=== PATIENT | female | born 1990 | race Asian ===

== ENCOUNTER 2021-05-02 21:02 | Outpatient (CLI) | payer OTHER ==
[~2021-05-02] VITALS: Ht 170.2 cm; Wt 87.1 kg
[2021-05-02 21:25] VITALS: BP 143/88
[2021-05-02] MEDS ORDERED: PRENCHW PO (21:49)
[2021-05-02] MEDS ORDERED: HOME MED LIST COMPLETE! XX SCH (21:50)
[2021-05-02 22:16] VITALS: BP 139/83
== END 2021-05-02 22:30 | disposition home or self-care (01) ==
LOC: M LDO 21:02
PROVIDERS: ATTEND Obstetrics & Gynecology
DX: O47.1 False labor at or after 37 completed weeks of gestation (principal); Z3A.39 39 weeks gestation of pregnancy
CPT/HCPCS: 59025; G0378; G0463

== ENCOUNTER 2021-05-06 16:57 | Inpatient (IN) | payer OTHER ==
[~2021-05-06] VITALS: Ht 170.2 cm; Wt 87.0 kg
[2021-05-06] VITALS (14 sets, daily range): BP systolic 100–164; BP diastolic 50–86
[~2021-05-06 16:57] MED LIST: PRENCHW PO
[2021-05-06] MEDS ORDERED: HOME MED LIST COMPLETE! XX SCH (17:25)
[2021-05-06] MEDS ORDERED: METHYLERGONOVINE MALEATE 0.2 MG/ML VIAL (J2210) IM PRN (17:40)
[2021-05-06] MEDS ORDERED: LIDOCAINE 1% MDV 20ML VIAL INFIL PRN (17:40)
[2021-05-06] MEDS ORDERED: LR 1,000 ML IV SCH ×2 (17:40→21:50)
[2021-05-06] MEDS ORDERED: OXYTOCIN DRIP 30 UNITS in IV 1 EA IV PRN (17:40)
[2021-05-06 18:13] LABS: HEMATOCRIT 38.3 % (36.0-47.0); HEMOGLOBIN 12.9 g/dl (12.0-15.5); MEAN CORPUSCULAR HEMOGLOBIN 29.7 pg (27.0-33.0); MEAN CORPUSCULAR HGB CONC 33.7 g/dl (32.0-36.5); PLATELET COUNT, AUTOMATED 256 10^3/uL (150-450); RED BLOOD COUNT 4.35 10^6/uL (4.00-5.40); WHITE BLOOD COUNT 13.5 10^3/uL (4.0-10.0)
[2021-05-06] MEDS ORDERED: OXYTOCIN DRIP 30 UNITS in IV 1 EA IV SCH (21:50)
[2021-05-06] MEDS ORDERED: FENTANYL 2MCG/ML ROPIVACAINE 0.2% IN 0.9% NACL 100ML IVBAG As Ordered ONE (22:41)
[2021-05-06] MEDS ORDERED: EPIDURAL COMMENT XX SCH (23:05)
[2021-05-06] MEDS ORDERED: ONDANSETRON 4MG/2ML VIAL IV PRN (23:05)
[2021-05-06] MEDS ORDERED: LACTATED RINGER'S 1000 ML IV PRN (23:05)
[2021-05-06] MEDS ORDERED: REFRIGERATOR IV KEYS XX PRN (23:05)
[2021-05-06] MEDS ORDERED: FENTANYL/ROPIVACAINE/NACL BAG 100 ML EPIDURAL SCH (23:05)
[2021-05-06] MEDS ORDERED: diphenhydrAMINE 50MG/ML VIAL (J1200) IV PRN (23:05)
[2021-05-06] MEDS ORDERED: ePHEDrine SULFATE 25 MG/5 ML(5MG/ML) SYRINGE IV PRN (23:05)
[2021-05-06] MEDS ORDERED: EPIDURAL/PCA KEYS XX PRN (23:05)
[2021-05-06] MEDS ORDERED: NALOXONE INJ 0.4MG/1ML VIAL (J2310 PER 1MG) IV PRN (23:05)
[2021-05-07] VITALS (10 sets, daily range): BP systolic 101–141; BP diastolic 49–73
[2021-05-07] MEDS ORDERED: MEASLES,MUMPS,RUBELLA VACCINE INJ (MMR-II) (90707) SC SCH (04:10)
[2021-05-07] MEDS ORDERED: RHOGAM 300 MCG (1500 IU) INJ (J2790) IM SCH (04:10)
[2021-05-07] MEDS ORDERED: DIBUCAINE 1% OINTMENT 30GM TOP PRN (04:10)
[2021-05-07] MEDS ORDERED: DOCUSATE SODIUM 100MG CAPSULE PO PRN (04:10)
[2021-05-07] MEDS ORDERED: ACETAMINOPHEN TAB 650MG DOSE (2X325MG) PO PRN (04:10)
[2021-05-07] MEDS ORDERED: ONDANSETRON 4MG/2ML VIAL IV PRN (04:10)
[2021-05-07] MEDS ORDERED: IBUPROFEN 600MG TAB PO PRN (04:10)
[2021-05-07] MEDS ORDERED: OXYTOCIN DRIP 30 UNITS in IV 1 EA IV SCH (04:10)
[2021-05-07] MEDS: PRENATAL VITAMINS CHEWABLE TABLET PO SCH (09:33)
[2021-05-07] MEDS: ACETAMINOPHEN 500 MG TAB PO PRN ×2 (12:51→20:09)
[2021-05-07] MEDS: IBUPROFEN 800 MG TAB PO PRN (17:42)
[2021-05-08] MEDS: IBUPROFEN 800 MG TAB PO PRN (01:37)
[2021-05-08] MEDS: ACETAMINOPHEN 500 MG TAB PO PRN (04:11)
[2021-05-08] MEDS ORDERED: IBUP80TA PO (05:48)
[2021-05-08] MEDS ORDERED: COLA100C5 PO (05:48)
[2021-05-08] MEDS ORDERED: ACET1TAB55 PO (05:48)
[2021-05-08 06:00] VITALS: BP_SYST 118; BP_SYST 140; BP_DIAS 58; BP_DIAS 79
[2021-05-08] MEDS: PRENATAL VITAMINS CHEWABLE TABLET PO SCH (07:26)
== END 2021-05-08 11:15 | disposition home or self-care (01) | DRG 807 ==
LOC: M LDO 16:57 → M LDI 17:40 → M OBS 05-07 06:10
PROVIDERS: ADMIT Obstetrics & Gynecology; ATTEND Obstetrics & Gynecology
PROC: 10E0XZZ Delivery of Products of Conception, External Approach (ICD-10-PCS; principal; 2021-05-07)
PROC: 0HQ9XZZ Repair Perineum Skin, External Approach (ICD-10-PCS; 2021-05-07)
DX: O70.0 First degree perineal laceration during delivery (principal); Z37.0 Single live birth; Z3A.39 39 weeks gestation of pregnancy

== ENCOUNTER → 2023-10-21 | Outpatient (CLI) | payer OTHER ==
[~2023-10-21] MED LIST changes: +ACET1TAB55 PO; +COLA100C5 PO; +IBUP80TA PO; +ISOVUE-370 76% 100ML VIAL ONE
== END ==
LOC: M PLAIMG 07:53
PROVIDERS: ATTEND Family Medicine
DX: M54.2 Cervicalgia (principal)

== ENCOUNTER → 2024-01-12 | Outpatient (REF) ==
[~2024-01-12] MED LIST changes: -ISOVUE-370 76% 100ML VIAL ONE
[2024-01-12 15:42] LABS: HEMOGLOBIN 14.4 g/dl (12.0-15.5)
== END ==
LOC: M PLAIMG 13:18
PROVIDERS: ATTEND Nurse Practitioner Family
DX: Z00.00 Encounter for general adult medical examination without abnormal findings (principal)

== ENCOUNTER → 2024-06-22 | Outpatient (CLI) | payer OTHER ==
[~2024-06-22] MED LIST changes: +ISOVUE-370 76% 100ML VIAL As Ordered ONE
== END ==
LOC: M RAD 08:18
PROVIDERS: ATTEND Thoracic Surgery (Cardiothoracic Vascular Surgery)
DX: Q45.8 Other specified congenital malformations of digestive system (principal)
CPT/HCPCS: 71260; Q9967